=== PATIENT | male | born 1990 | race Caucasian/White ===

== ENCOUNTER 2023-03-26 03:21 | Emergency (ER) | payer OTHER ==
[~2023-03-26] VITALS: Ht 175.3 cm; Wt 70.5 kg
[2023-03-26] MEDS ORDERED: ibuprofen 200mg tablet PO ONE (04:05)
--- NOTE | 2023-03-26 04:21 | NUR ---
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
[2023-03-26] MEDS ORDERED: CefTRIAXone 2gm/D5W 50ml BAG 50 ML IV ONE (06:00)
[2023-03-26] MEDS ORDERED: doxycycline inj 100 MG in normal saline 100ml IV soln 100 ML IV SCH (08:00)
[2023-03-26 08:54] VITALS: TEMP 98.2
[2023-03-26 09:30] LABS: GLUCOSE,BODY FLUID 64 MG/DL; LDH,BODY FLUID 312 U/L
[2023-03-26 09:36] LABS: BASOPHILS % (AUTO) 0.4 % (0-1); EOSINOPHILS # (AUTO) 0.1 X10'3 (0-0.9); EOSINOPHILS % (AUTO) 0.9 % (0-6); HEMATOCRIT 34.1 % (42.0-52.0); HEMOGLOBIN 11.7 g/dl (14.0-17.9); LYMPHOCYTES # (AUTO) 2.4 X10'3 (1.1-4.8); LYMPHOCYTES % (AUTO) 22.8 % (21-51); MEAN CORPUSCULAR HEMOGLOBIN 29.6 PG (27.0-31.0); MEAN CORPUSCULAR HGB CONC 34.4 g/dL (33.0-36.5); MEAN PLATELET VOLUME 6.1 FL (7.4-10.4); MONOCYTES # (AUTO) 0.8 X10'3 (0-0.9); MONOCYTES % (AUTO) 7.9 % (2-12); NEUTROPHILS # (AUTO) 7.2 X10'3 (1.8-7.7); PLATELET COUNT 330 X10'3 (140-440); RED BLOOD COUNT 3.96 X10'6 (4.70-6.10); RED CELL DISTRIBUTION WIDTH 12.9 % (11.5-14.5); WHITE BLOOD COUNT 10.6 X10'3 (4.5-11.0)
[2023-03-26 09:46] LABS: ALANINE AMINOTRANSFERASE 36 U/L (12-78); ALBUMIN 2.6 G/DL (3.4-5.0); ALBUMIN/GLOBULIN RATIO 0.6 (1.1-1.5); ALKALINE PHOSPHATASE 80 IU/L (46-116); ANION GAP 6 (8-16); ASPARTATE AMINO TRANSFERASE 11 U/L (10-37); BILIRUBIN,TOTAL 0.2 MG/DL (0.1-1.0); BLOOD UREA NITROGEN 8 MG/DL (7-18); BUN/CREATININE RATIO 9.5 (10.0-20.0); C-REACTIVE PROTEIN 7.33 MG/DL (0.0-0.5); CALCIUM 9.2 MG/DL (8.5-10.1); CHLORIDE 104 MMOL/L (99-107); CREATININE 0.84 MG/DL (0.60-1.10); GLUCOSE 110 MG/DL (70-104); POTASSIUM 3.6 MMOL/L (3.5-5.1); SODIUM 139 MMOL/L (135-145); TOTAL PROTEIN 6.8 G/DL (6.4-8.2); eCRCL 122 ML/MIN; eGFR > 90 ML/MIN
[2023-03-26 10:12] LABS: APPEARANCE,SYNOVIAL FLUID CLOUDY; COLOR,SYNOVIAL FLUID YELLOW; SYN RBC 1500 /CU MM (0); SYN WBC 36600 /CU MM (0-200)
[2023-03-26 11:08] VITALS: BP 146/88; PULSE 89; RESP 15; O2SAT 100
[2023-03-26] MEDS ORDERED: DOXY-11 PO (12:09)
[2023-03-26] MEDS ORDERED: NAPR-56 PO (12:09)
[2023-03-30 09:36] LABS: CHLAMYDIA TRACHOMATIS, NAA Positive (Negative)
== END 2023-03-26 12:37 ==
LOC: ER 03:23 → EEVIPCON 03:23 → ER 12:37
DX: L03.116 Cellulitis of left lower limb (principal); F17.200 Nicotine dependence, unspecified, uncomplicated
CPT/HCPCS: 10160; 36415; 73564; 80053; 82945; 83605; 83615; 84157; 85025; 85651; 86140; 86592; 87040; 87070; 87075; 87491; 87591; 89051; 93971; 96365; 96366; 96367; 99285; J0696; J3490; 20611

== ENCOUNTER 2023-08-25 04:55 | Emergency (ER) | payer OTHER ==
[~2023-08-25] VITALS: Ht 175.3 cm; Wt 77.3 kg
[2023-08-25 05:01] VITALS: TEMP 97.7
[2023-08-25 05:55] LABS: BASOPHILS % (AUTO) 0.3 % (0-1); EOSINOPHILS # (AUTO) 0.1 X10'3 (0-0.9); HEMATOCRIT 44.2 % (42.0-52.0); HEMOGLOBIN 15.3 g/dl (14.0-17.9); LYMPHOCYTES # (AUTO) 1.5 X10'3 (1.1-4.8); LYMPHOCYTES % (AUTO) 14.5 % (21-51); MEAN CORPUSCULAR HEMOGLOBIN 29.4 PG (27.0-31.0); MEAN CORPUSCULAR HGB CONC 34.5 g/dL (33.0-36.5); MEAN CORPUSCULAR VOLUME 85.1 FL (78-98); MEAN PLATELET VOLUME 6.6 FL (7.4-10.4); MONOCYTES # (AUTO) 0.6 X10'3 (0-0.9); MONOCYTES % (AUTO) 5.6 % (2-12); NEUTROPHILS # (AUTO) 8.1 X10'3 (1.8-7.7); NEUTROPHILS % (AUTO) 78.6 % (42-75); PLATELET COUNT 258 X10'3 (140-440); RED BLOOD COUNT 5.19 X10'6 (4.70-6.10); RED CELL DISTRIBUTION WIDTH 14.1 % (11.5-14.5); WHITE BLOOD COUNT 10.3 X10'3 (4.5-11.0)
[2023-08-25 06:19] LABS: ALBUMIN 3.7 G/DL (3.4-5.0); ANION GAP 4 (8-16); BLOOD UREA NITROGEN 14 MG/DL (7-18); BUN/CREATININE RATIO 17.5 (10.0-20.0); CALCIUM 9.1 MG/DL (8.5-10.1); CHLORIDE 102 MMOL/L (99-107); GLUCOSE 96 MG/DL (70-104); POTASSIUM 4.7 MMOL/L (3.5-5.1); SODIUM 138 MMOL/L (135-145); TOTAL CARBON DIOXIDE 31.7 MMOL/L (24-32); eCRCL 129 ML/MIN; eGFR > 90 ML/MIN
[2023-08-25 06:21] LABS: PRO BRAIN NATRIURETIC PEPTIDE < 30 PG/ML (0-125)
[2023-08-25] MEDS ORDERED: acetaminophen 325mg tablet PO ONE (06:30)
[2023-08-25 06:42] VITALS: BP 145/95; PULSE 82; RESP 18; O2SAT 99
== END 2023-08-25 06:43 | disposition home or self-care (01) ==
LOC: ER 04:56
DX: R07.89 Other chest pain (principal); R00.2 Palpitations; R06.00 Dyspnea, unspecified; F15.90 Other stimulant use, unspecified, uncomplicated; F11.90 Opioid use, unspecified, uncomplicated
CPT/HCPCS: 36415; 71045; 80048; 83880; 84484; 85025; 93005; 99285

== ENCOUNTER 2024-01-29 13:54 | Emergency (ER) | payer MEDICAID, OTHER ==
[~2024-01-29] VITALS: Ht 175.3 cm; Wt 80.4 kg
[2024-01-29 14:03] VITALS: TEMP 98.6
[2024-01-29 15:59] LABS: BASOPHILS % (AUTO) 0.5 % (0-1); EOSINOPHILS # (AUTO) 0.2 X10'3 (0-0.9); HEMATOCRIT 41.5 % (42.0-52.0); LYMPHOCYTES # (AUTO) 1.9 X10'3 (1.1-4.8); LYMPHOCYTES % (AUTO) 24.5 % (21-51); MEAN CORPUSCULAR HEMOGLOBIN 29.2 PG (27.0-31.0); MEAN CORPUSCULAR HGB CONC 33.9 g/dL (33.0-36.5); MEAN CORPUSCULAR VOLUME 86.3 FL (78-98); MEAN PLATELET VOLUME 6.8 FL (7.4-10.4); MONOCYTES # (AUTO) 0.5 X10'3 (0-0.9); MONOCYTES % (AUTO) 5.9 % (2-12); NEUTROPHILS # (AUTO) 5.3 X10'3 (1.8-7.7); NEUTROPHILS % (AUTO) 67.1 % (42-75); PLATELET COUNT 248 X10'3 (140-440); RED BLOOD COUNT 4.81 X10'6 (4.70-6.10); RED CELL DISTRIBUTION WIDTH 13.1 % (11.5-14.5); WHITE BLOOD COUNT 7.9 X10'3 (4.5-11.0)
[2024-01-29 16:06] LABS: ALBUMIN 3.6 G/DL (3.4-5.0); ANION GAP 9 (8-16); BLOOD UREA NITROGEN 13 MG/DL (7-18); C-REACTIVE PROTEIN 0.25 MG/DL (0.0-0.5); CHLORIDE 108 MMOL/L (99-107); CREATININE 0.81 MG/DL (0.60-1.10); GLUCOSE 114 MG/DL (70-104); POTASSIUM 3.5 MMOL/L (3.5-5.1); SODIUM 144 MMOL/L (135-145); TOTAL CARBON DIOXIDE 27.4 MMOL/L (24-32); eCRCL 126 ML/MIN; eGFR > 90 ML/MIN
[2024-01-29 16:31] LABS: PLATELET ESTIMATE NORMAL; TOTAL CELLS COUNTED 100
[2024-01-29] MEDS: acetaminophen 325mg tablet PO ONE (16:55)
[2024-01-29] MEDS: ondansetron 4mg rapidly disintigrating tab PO ONE (16:55)
[2024-01-29] MEDS: normal saline 1000ML IV soln IVB ONE (17:04)
[2024-01-29] MEDS ORDERED: ketorolac trometh. 30mg/ml inj. IV ONE (17:30)
[2024-01-29] MEDS: ketorolac tromethamine 15mg/ml inj. IV ONE (17:57)
[2024-01-29] MEDS: proCHLORperazine 10 MG/2 ml inj IV STA (17:59)
[2024-01-29] MEDS: diphenhydrAMINE 50 mg/ml inj IV ONE (17:59)
[2024-01-29] MEDS: morphine 4 MG/ML inj SYRINge IV ONE (19:23)
[2024-01-29 19:55] LABS: BILIRUBIN,URINE NEGATIVE (Neg); CLARITY,URINE CLEAR (Clear); COLOR,URINE YELLOW (Yellow); GLUCOSE, URINE NEGATIVE (Neg); KETONES,URINE NEGATIVE (Neg); LEUKOCYTE ESTERASE ,URINE NEGATIVE (Neg); NITRITES, URINE NEGATIVE (Neg); OCCULT BLOOD,URINE NEGATIVE (Neg); PROTEIN,URINE NEGATIVE (Neg); UROBILINOGEN,URINE 0.2 E.U/dL (0.2-1.0)
[2024-01-29 19:58] LABS: UA COLLECTION TYPE NON-SPECIFIED
[2024-01-29] MEDS: normal saline 1000ml 1,000 ML IV ONE (20:09)
[2024-01-29] MEDS: SUMAtriptan succ. 6 MG/0.5ml vial SQ ONE (20:10)
[2024-01-29 21:11] VITALS: BP 115/71; PULSE 65; RESP 16; O2SAT 96
[2024-01-29] MEDS ORDERED: SUMA50TA PO (21:18)
[2024-01-29] MEDS ORDERED: ONDA-243 PO (21:18)
== END 2024-01-29 21:29 | disposition home or self-care (01) ==
LOC: ER 13:55
DX: R51.9 Headache, unspecified (principal); Z20.822 Contact with and (suspected) exposure to COVID-19; R30.0 Dysuria; R53.81 Other malaise; R50.9 Fever, unspecified; F15.90 Other stimulant use, unspecified, uncomplicated; F11.90 Opioid use, unspecified, uncomplicated
CPT/HCPCS: 36415; 70450; 80048; 81003; 85007; 85025; 86140; 87502; 87503; 87811; 96361; 96372; 96374; 96375; 99285; J1200; J1885; J2270; J3030; J7030

== ENCOUNTER 2024-02-25 19:58 | Emergency (ER) | payer MEDICAID ==
[~2024-02-25] VITALS: Ht 175.3 cm; Wt 86.9 kg
[~2024-02-25 19:58] MED LIST: ONDA-243 PO; SUMA50TA PO
[2024-02-25 20:58] LABS: BASOPHILS % (AUTO) 0.6 % (0-1); EOSINOPHILS # (AUTO) 0.2 X10'3 (0-0.9); EOSINOPHILS % (AUTO) 2.3 % (0-6); HEMATOCRIT 37.7 % (42.0-52.0); LYMPHOCYTES # (AUTO) 2.4 X10'3 (1.1-4.8); LYMPHOCYTES % (AUTO) 30.2 % (21-51); MEAN CORPUSCULAR HEMOGLOBIN 30.1 PG (27.0-31.0); MEAN CORPUSCULAR HGB CONC 34.6 g/dL (33.0-36.5); MEAN CORPUSCULAR VOLUME 86.8 FL (78-98); MEAN PLATELET VOLUME 6.9 FL (7.4-10.4); MONOCYTES # (AUTO) 0.4 X10'3 (0-0.9); MONOCYTES % (AUTO) 5.4 % (2-12); NEUTROPHILS # (AUTO) 4.8 X10'3 (1.8-7.7); NEUTROPHILS % (AUTO) 61.5 % (42-75); PLATELET COUNT 245 X10'3 (140-440); RED BLOOD COUNT 4.34 X10'6 (4.70-6.10); RED CELL DISTRIBUTION WIDTH 13.2 % (11.5-14.5); WHITE BLOOD COUNT 7.9 X10'3 (4.5-11.0)
[2024-02-25 21:19] LABS: ALANINE AMINOTRANSFERASE 20 U/L (12-78); ALBUMIN 3.2 G/DL (3.4-5.0); ALKALINE PHOSPHATASE 74 IU/L (46-116); ANION GAP 5 (8-16); ASPARTATE AMINO TRANSFERASE 14 U/L (10-37); BILIRUBIN,TOTAL 0.1 MG/DL (0.1-1.0); BLOOD UREA NITROGEN 11 MG/DL (7-18); BUN/CREATININE RATIO 12.8 (10.0-20.0); CALCIUM 8.8 MG/DL (8.5-10.1); CHLORIDE 105 MMOL/L (99-107); CREATININE 0.86 MG/DL (0.60-1.10); GLUCOSE 84 MG/DL (70-104); POTASSIUM 4.1 MMOL/L (3.5-5.1); SODIUM 142 MMOL/L (135-145); TOTAL CARBON DIOXIDE 32.1 MMOL/L (24-32); TOTAL PROTEIN 6.5 G/DL (6.4-8.2); eCRCL 119 ML/MIN; eGFR > 90 ML/MIN
[2024-02-25 21:36] VITALS: BP 131/70; PULSE 73; TEMP 98.7; O2SAT 100
[2024-02-25] MEDS ORDERED: SUMAtriptan 5 mg Nasal Spray NS ONE (21:50)
[2024-02-25] MEDS: ketorolac trometh 30MG/ML vial 30 MG/ML VIAL IM ONE (22:26)
[2024-02-25] MEDS: SUMAtriptan succ. 6 MG/0.5ml vial SQ ONE (22:26)
[2024-02-25 22:30] VITALS: RESP 16
== END 2024-02-25 22:31 | disposition home or self-care (01) ==
LOC: ER 19:58
DX: G43.909 Migraine, unspecified, not intractable, without status migrainosus (principal); F15.90 Other stimulant use, unspecified, uncomplicated; Z79.899 Other long term (current) drug therapy
CPT/HCPCS: 36415; 80053; 85025; 96372; 99284; J1885; J3030